=== PATIENT | female | born 1940 | race American Indian/Alaskan Native ===

== ENCOUNTER 2016-06-22 08:06 | Emergency (ER) | payer MEDICARE ==
--- NOTE | 2016-06-22 12:21 | Emergency Department Report ---
Chief Complaint: Nausea/Vomiting/Diarrhea Stated Complaint: POSS HIGH BP/DIZZY Time Seen by Provider: 06/22/16 09:50 - HPI History of Present Illness: Patient here reports that she's been having nausea and vomiting for month. Primary care physician is Dr. Foreign enriquez. She did not report dysuria primary care physician. Denies any chest pain or shortness of breath. Patient has a history of coronary artery disease with stent placement. She reports that her blood pressure was elevated and she is on losartan and metoprolol ER and Aldactone. Patient daughter reported that she gave her metoprolol at 9 AM. Patient said that she is dizzy all the time and that is what prompts her to come to the emergency room. She said nausea and vomiting with diarrhea started today. Patient denies any abdominal pain. - ROS Review of Systems: All systems are negative unless stated in HPI above. - Exam Vital Signs: Vital Signs 06/22/16 08:44 Temperature 97.5 F L Pulse Rate 62 Respiratory 18 Rate Blood Pressure 188/92 O2 Sat by Pulse 100 Oximetry Physical Exam: General: This is a 76-year-old female well-nourished well-developed nontoxic in appearance. CV: S1, S2. Regular rate and rhythm. Lungs: Clear to auscultate bilaterally, no rhonchi wheezes or rales. MSE screening note: Focused history and physical exam performed. Due to findings the following was ordered:see [facility] ED Medical Decision Making - Medical Decision Making Medical decision making: Patient seen by provider in triage area. Appropriate protocol activated and patient to main ED to be seen by physician. ED Disposition for MSE Condition: Stable
[2016-06-22 12:26] VITALS: BP 162/79
[2016-06-22 12:54] LABS: Basophils % (Auto) 0.4 % (0.0-1.8); Eosinophils % (Auto) 2.1 % (0.0-4.3); Hematocrit 37.3 % (30.3-42.9); Hemoglobin 12.1 gm/dl (10.1-14.3); Mean Corpuscular HGB Conc 32 % (30-34); Mean Corpuscular Hemoglobin 29 pg (28-32); Mean Corpuscular Volume 89 fl (79-97); Platelet Count 233 K/mm3 (140-440); Red Blood Count 4.19 M/mm3 (3.65-5.03); Red Cell Distribution Width 14.6 % (13.2-15.2); White Blood Count 7.8 K/mm3 (4.5-11.0)
[2016-06-22 13:07] LABS: Creatine Kinase MB 1.9 ng/mL (0.0-4.0)
[2016-06-22 13:09] LABS: Alanine Aminotransferase 20 units/L (7-56); Albumin 3.9 g/dL (3.9-5); Albumin/Globulin Ratio 0.9 %; Alkaline Phosphatase 103 units/L (35-129); Anion Gap 19 mmol/L; BUN/Creatinine Ratio 25.55; Bilirubin,Total 0.4 mg/dL (0.1-1.2); Blood Urea Nitrogen 23 mg/dL (7-17); Calcium 9.2 mg/dL (8.4-10.2); Carbon Dioxide 24 mmol/L (22-30); Chloride 99.8 mmol/L (98-107); Creatine Kinase 112 units/L (30-135); Glucose 118 mg/dL (65-100); Sodium 138 mmol/L (137-145); Total Protein 8.1 g/dL (6.3-8.2)
[2016-06-22 13:11] LABS: Potassium 5.1 mmol/L (3.6-5.0)
[2016-06-22 13:53] LABS: Bilirubin,Urine NEG (Negative); Blood,Urine NEG (Negative); Ketones,Urine NEG (Negative); Leukocyte Esterase,Urine NEG (Negative); Mucus,Urine FEW /HPF; Nitrite,Urine NEG (Negative); Protein,Urine <15 mg/dL mg/dL (Negative); Urobilinogen,Urine < 2.0 mg/dL (<2.0); WBC,Urine < 1.0 /HPF (0.0-6.0)
--- NOTE | 2016-06-24 19:28 | ED Elopement Review ---
ED Pt Elopement review - Results review Lab results: Laboratory Tests 06/22/16 06/22/16 06/22/16 12:35 12:35 12:52 WBC 7.8 RBC 4.19 Hgb 12.1 Hct 37.3 MCV 89 MCH 29 MCHC 32 RDW 14.6 Plt Count 233 Lymph % (Auto) 28.2 [place] % (Auto) 8.6 H Eos % (Auto) 2.1 Baso % (Auto) 0.4 Lymph # 2.2 [place] # 0.7 Eos # 0.2 Baso # 0.0 Seg Neutrophils % 60.7 Seg Neutrophils # 4.7 Sodium 138 Potassium 5.1 H Chloride 99.8 Carbon Dioxide 24 Anion Gap 19 BUN 23 H Creatinine 0.9 Estimated GFR > 60 BUN/Creatinine Ratio 25.55 Glucose 118 H Calcium 9.2 Total Bilirubin 0.4 AST 23 ALT 20 Alkaline Phosphatase 103 Total Creatine Kinase 112 CK-MB (CK-2) 1.9 CK-MB (CK-2) Rel Index 1.6 Troponin T < 0.010 Total Protein 8.1 Albumin 3.9 Albumin/Globulin Ratio 0.9 Urine Color Yellow Urine Turbidity Clear Urine pH 5.0 Ur Specific [place] 1.017 Urine Protein <15 mg/dl Urine Glucose (UA) Neg Urine Ketones Neg Urine Blood Neg Urine Nitrite Neg Urine Bilirubin Neg Urine Urobilinogen < 2.0 Ur Leukocyte Esterase Neg Urine WBC (Auto) < 1.0 Urine RBC (Auto) 4.0 Urine Mucus Few - Call Back decision Pt Call Back Decision: No action required
== END 2016-06-22 12:53 | disposition left against medical advice (07) ==
LOC: ED 08:06
DX: R11.2 Nausea with vomiting, unspecified (principal); R42 Dizziness and giddiness; R19.7 Diarrhea, unspecified; Z53.21 Procedure and treatment not carried out due to patient leaving prior to being seen by health care provider
CPT/HCPCS: 36415; 80053; 81001; 82550; 82553; 84484; 85025; 93005; 93010